=== PATIENT | male | born 1985 | race Caucasian/White ===

== ENCOUNTER 2024-09-14 20:14 | Emergency (ER) | payer BC, SELFPAY ==
[2024-09-14 20:16] VITALS: BP 165/109
--- NOTE | 2024-09-14 20:16 | ED.GENMED ---
History of Present Illness
General
Chief Complaint: Anxiety
Source: patient
Time Seen by Provider: 09/14/24 20:29
History of Present Illness
History of Present Illness:
38-year-old male with past medical history of anxiety, ADD, previous substance abuse presenting to the emergency department for evaluation of exacerbation of his anxiety over the last stating he is scheduled racing thoughts, palpitations,
generalized feeling of impending doom. Patient states that he has gotten all of his anxiety medication about 7 months ago as he felt he was doing quite well and has been fine since. He does believe that a family stressor is what triggered his
anxiety. Patient denies any suicidal ideation, homicidal ideation, auditory or visual hallucinations. Denies any active substance abuse. States was previously prescribed 1 mg Klonopin as needed for his anxiety. Patient denies any fevers or
infectious physical concerns at this time.
Past History
Past History
ED Past Medical History: Other (Hepatitis C), Other (IVDA-heroin) and Other (Previous septic arthritis, with MRSA, aspiration pneumonia, hep C with cure)
ED Past Surgical History: None
Social History
Tobacco: Smoker
Alcohol: None
Drug: Former user, Narcotics and IVDA
Personal: Single
Living: with family
Employment: Student
Family History
Family History: Other (Coronary disease, diabetes, hyperlipidemia)
Review of Systems
Review of Systems
All Other Systems: ROS reviewed and negative except as documented in HPI and ROS
Phy Exam
Physical Exam
Physical Exam:
GENERAL: Alert , in no apparent distress but does appear anxious
EYE: conjunctiva clear
NECK: Supple
ENT: o/p clr, mmm.
CARDIAC: Regular rate and rhythm
LUNGS: Clear breath sounds bilaterally, no acute respiratory distress, no wheezes/rales/rhonchi
NEUROLOGICAL: Alert and oriented
SKIN: Warm and dry, skin intact.
MUSCULOSKELETAL: well perfused.
PSYCH: Normal and appropriate interaction.
Scores
Heart Failure Risk
Heart Failure Risk Score: Not Applicable
Heart Score for Chest Pain Patients
STEMI patient?: Not applicable
Withdrawal Assessment of Alcohol
Withdrawal Assessment Completed?: Not applicable
Course
Orders/Labs/Results
Orders:
Orders
09/14/24 20:22
Clonazepam [Klonopin] 1 mg PO NOW STA
Vital Signs
Initial and Last Documented VS:
Initial Vital Signs
Temp Pulse Resp BP Pulse Ox
97.5 F 86 20 165/109 96
09/14/24 20:16 09/14/24 20:16 09/14/24 20:16 09/14/24 20:16 09/14/24 20:16
Last Documented Vital Signs
Temp Pulse Resp BP Pulse Ox
97.5 F 86 20 165/109 96
09/14/24 20:16 09/14/24 20:16 09/14/24 20:16 09/14/24 20:16 09/14/24 20:16
MDM/Problems Addressed
Differential Diagnosis Includes:
Anxiety, patient denies any suicidal or homicidal ideations, no concern for physical pathology or emergent symptoms but he has not been
MDM/Problems Addressed:
38-year-old male presenting to the ER for evaluation of increased anxiety over the last few days with a feeling of impending doom. No SI or HI. No physical complaints at this time. Does admit to some intermittent heart racing but denies this
presently. States has an appointment with his primary care provider for later this week. Had been on Klonopin as needed but discontinued this on his own 7 months ago. Offered patient [facility] crisis evaluation however he declined. [place] PDMP
was reviewed and patient has not received any benzodiazepine prescriptions in over 7 months. No prescriptive abnormalities found. Will give a dose of the Klonopin here as patient's mother drove him to the ER and provided with a short-term course
of this to hold patient over until he sees primary care provider. Patient is aware of return precautions otherwise stable for discharge home.
*Pulse Oximetry
Patient hypoxic: no
*Critical Care Note
Total Time (30-74mins, 75-104mins- exclusive of procedures): Not Applicable
Data Reviewed
Review of Other/Old Records Reveals: Records
Patient Management
Social determinants of health affecting care: Strong social support
ED Attending Note
-
Portions of this chart may have been created with voice recognition software.� Occasional wrong word or��sound alike� substitutions may have occurred due to the inherent limitations of voice recognition software.
Discharge Plan
Departure
Patient Disposition: Home (Routine Discharge)
Date of Disposition: 09/14/24
Time of Disposition: 20:22
Patient with high blood pressure during this ER visit?: No
Discharge Problem:
Anxiety
Instructions: Anxiety, Adult (DC)
Prescriptions:
New
clonazepam [Klonopin] 1 mg tablet
1 mg PO HS Qty: 4 0RF
Interventions
Interventions:
*Risk Screen - Suicide Last Done: 09/14/24 20:21
*General Assessment Last Done: 09/14/24 20:21
*Neglect/Abuse Screening Last Done: 09/14/24 20:21
ED- Fall Risk Assessment Last Done: 09/14/24 20:21
*ED COVID-19 Vaccine History Last Done: 09/14/24 20:21
ED-Psychological Assessment Last Done: 09/14/24 20:21
Discharge Date and Time
Print Language: ROMANIAN
[2024-09-14] MEDS: KLONOPIN 1 MG PO (20:29)
[2024-09-14 20:32] VITALS: BP 177/94
== END 2024-09-14 20:35 | disposition home or self-care (01) ==
LOC: EMR 20:14
PROVIDERS: EMERGENCY PHYSICIAN Student in an Organized Health Care Education/Training Program
DX: F41.9 Anxiety disorder, unspecified (principal); F17.200 Nicotine dependence, unspecified, uncomplicated; Z63.8 Other specified problems related to primary support group
CPT/HCPCS: 99283